=== PATIENT | female | born 1995 | race African-American/Black ===

== ENCOUNTER 2017-05-02 13:50 | Emergency (ER) | payer OTHER ==
[~2017-05-02] VITALS: Ht 170.2 cm; Wt 81.2 kg
[2017-05-02] MEDS ORDERED: LIDOCAINE 2%-EPI 1:100,000 30 ML VIAL ONE (13:57)
--- NOTE | 2017-05-02 13:59 | NUR ---
BIBRA FOR RIGHT FOOT WOUND SP FALL. NO ACTIVE BLEEDING NOTED AT THIS TIME. VSS
[2017-05-02 14:38] VITALS: BP 125/66
== END 2017-05-02 14:40 | disposition home or self-care (01) ==
LOC: ER 13:51
DX: O9A.213 Injury, poisoning and certain other consequences of external causes complicating pregnancy, third trimester (principal); S91.311A Laceration without foreign body, right foot, initial encounter; W25.XXXA Contact with sharp glass, initial encounter; Y93.89 Activity, other specified; Y92.89 Other specified places as the place of occurrence of the external cause; Y99.8 Other external cause status
CPT/HCPCS: 12001; 99283; A4606; J3490 ×2; Z7610; A6402